=== PATIENT | female | born 1940 | race Caucasian/White ===

== ENCOUNTER 2021-05-03 07:00 | Day surgery (SDC) | payer OTHER, SELFPAY ==
[2021-05-03] MEDS: Tropicam./Phenyleph. (1/2.5%) 5 ML BTL OD ×3 (07:21→07:35)
[2021-05-03 07:31] VITALS: BP 153/70; PULSE 67; RESP 16; TEMP 36.1; O2SAT 98
--- NOTE | 2021-05-03 08:02 | W.ANESPRE ---
General Info Date of Service Date Performed: 05/03/21 Height: 4 ft 11.25 in Weight: 86.3 kg Body Mass Index (BMI): 38.0 Surgical Procedure: Operation Date: 05/03/21 08:40 Proposed Procedures Side Surgeon p Cataract Extraction with IOL Implant Right Chad Abbott MD Meds Allergies and Home Medications Allergies Allergy/AdvReac Type Severity Reaction Status Date / Time bee venom protein (honey bee) Allergy Severe Anaphylaxis Unverified 05/03/21 07:26 Home Medication Medication Instructions Recorded hydrochlorothiazide 12.5 mg PO DAILY 05/01/21 lisinopril 5 mg PO DAILY 05/01/21 metformin 500 mg PO DAILY 05/01/21 [id number] 1 tab PO DAILY 05/01/21 [Multivitamin 50 Plus] Current Visit Medications: Current Medications Generic Name Dose Route Start Last Admin Trade Name Freq PRN Reason Stop Dose Admin Acetaminophen 1,000 mg 05/03/21 06:00 Acetaminophen 500 Mg Tab PO Q4H PRN PRN Miscellaneous Medication 0 ml 05/03/21 06:00 Prednisolone 1%, Moxifloxacin 0.5%, Nepafenac 0.1% 5ml Btl OD DIRECTED TAYLOR Miscellaneous Medication 0 ml 05/03/21 06:00 05/03/21 07:35 Tropicam./Phenyleph. (1/2.5%) 5 Ml Btl OD 1 drp DIRECTED TAYLOR Administration Tetracaine HCl 0 ml 05/03/21 06:00 Tetracaine 0.5% 4 Ml Btl OD DIRECTED TAYLOR PFSH Active Problems Active Problems: Problem Status Onset Code Nuclear sclerotic cataract of right eye H25.11 Posterior subcapsular age-related cataract, right eye H25.041 Medical History Medical History Adjustment disorder with depressed mood Diabetes mellitus Hyperlipidemia Hypertensive disorder Knee pain Malaise and fatigue Migraine Severe obesity Surgical History Surgical History History of total hysterectomy Hx of appendectomy Hx of tonsillectomy Tobacco Smoking/Tobacco Use Status: Former Tobacco Use Alcohol Alcohol Intake: current Alcohol intake frequency: a few times a week Alcohol type: wine Substance Use Substance use: Never Substance use type: does not use Vital Signs and Lab Results Vital Signs Most Recent Vital Signs in EMR: Most Recent Vital Signs Temp Pulse Resp BP Pulse Ox 36.1 C L 67 16 153/70 H 98 05/03/21 07:31 05/03/21 07:31 05/03/21 07:31 05/03/21 07:31 05/03/21 07:31 Point of Care Results Point of Care Results: Finger Stick Blood Glucose 147 05/03/21 07:26 Lab Results Blood Type / Crossmatch: No Data to Display Complete Blood Count: No Data to Display Complete Metabolic Panel: No Data to Display Liver Function Panel: No Data to Display Coagulation Panel: No Data to Display Cardiac Panel: No Data to Display Arterial Blood Gas: No Data to Display Venous Blood Gas: No Data to Display Pancreas Panel: No Data to Display Thyroid Panel: No Data to Display Infectious Disease: No Data to Display Blood Cultures: No Data to Display Toxicology Panel: No Data to Display Anesthesia Assessment and Plan Anesthesia History Personal History: No History of Anesthesia Complications and Unknown Anesthesia History Family History: No Family History of Anesthesia Complications Exercise Tolerance Exercise Tolerance: Metabolic Equivalents<4 Pertinent Negatives Pertinent Negatives: No Symptoms of GERD, No Major Cardiovascular Symptoms or Complaints, No Major Pulmonary Symptoms or Complaints and No History of CVA/TIA Cardiac & Pulmonary Exam Cardiac Exam: Normal S1/S2 Heart Sounds Pulmonary Exam: Clear Bilateral Breath Sounds Airway Exam Known Difficult Airway: No Mallampati Class: 1 Mouth Opening: Normal (> 3cm) Thyromental Distance: Greater than 3 cm Neck Range of Motion: Full ROM Neck Circumference: Thick Teeth Condition: Normal Dentition ASA Classification ASA Score: ASA 2 Emergency Case?: No NPO Status NPO Status: NPO Clears >2 hours, Solids >8 hours Anesthesia Plan Resuscitation Status: Full Code Anesthesia Technique: MAC Anesthesia Airway Planned: Natural Airway Monitors Used: Standard Monitors
[2021-05-03 08:05] VITALS: BMI 38.0
[2021-05-03] MEDS: Balanced Salt Soln.-PLUS 500 ML BAG (08:20)
[2021-05-03] MEDS: Tetracaine 0.5% 4 ML BTL OD (08:20)
[2021-05-03] MEDS: Duovisc Viscoelastic System EACH 1 EACH (08:21)
[2021-05-03] MEDS: Lidocaine 2% Jelly 6 ML SYR (08:23)
[2021-05-03] MEDS: Lidocaine 1% Pres-Free 5 ML VIAL (08:23)
[2021-05-03] MEDS: Trypan Blue 0.06% 0.5 ML SYR (08:25)
[2021-05-03] MEDS: Povidone-Iodine Ophth 30 ML BTL (08:25)
--- NOTE | 2021-05-03 08:45 | W.PM.DSUDISC ---
Discharge Plan Disposition Patient Disposition: HOME Condition: Good Discharge Details Attending Provider: Chad Abbott Primary Care Provider: Rajani George Home Meds and New Rx's Prescriptions: No Action metformin 500 mg tablet 500 mg PO DAILY RF: 0 lisinopril 2.5 mg tablet 5 mg PO DAILY RF: 0 Multivitamin 50 Plus Tablet 1 tab PO DAILY RF: 0 hydrochlorothiazide 12.5 mg tablet 12.5 mg PO DAILY RF: 0 Discharge Instructions Stand Alone Forms: Post-op Topical Cataract, Isak Garcia (DSU) Discharge Orders Discharge Orders: Discharge Order (Routine); Ordered 05/03/21 Ordered By: Chad Abbott DS: Diagnosis Discharge Diagnosis (1) Nuclear sclerotic cataract of right eye: Status: Resolved (2) Posterior subcapsular age-related cataract, right eye: Status: Resolved
--- NOTE | 2021-05-03 08:46 | ROE_ITS ---
Date of service: 05/03/21 Time of Service: 08:47 Operative Note Operative Note DATE OF PROCEDURE: 05/03/21 PRE-OP DIAGNOSIS: Nuclear/posterior subcapsular cataract, right eye Poor red reflex, right eye secondary to cataract POST-OP DIAGNOSIS: same PROCEDURE: Cataract extraction using phacoemulsification with intraocular lens implantation, right eye, using capsular staining with Vision Blue SURGEON: Chad Abbott ANESTHESIA TYPE: Local By Surgeon and MAC Refer to Anesthesia Record PATHOLOGY: none sent COMPLICATIONS: None Patient was transported to: same day Patient's condition: stable Implants: [employer] / [employer] Tecnis [id number] Indications: Progressive visual loss due to cataract, right eye Procedure Description: CATARACT SURGERY OPERATIVE REPORT PREOPERATIVE DIAGNOSIS: 1. Nuclear/posterior subcapsular cataract, right eye 2. Poor red reflex secondary to #1 POSTOPERATIVE DIAGNOSIS: Same OPERATION: 1. Cataract extraction using phacoemulsification with posterior chamber intraocular lens implant, right eye. 2. Capsular staining with Vision Blue IOL: IOL Contact Lens Flashing Puncher/Model: [employer] Tore[employer] / DEIDRA Tecnis [id number] IOL Power: + 22.0 diopters IOL Serial Number: [id number] Optic Diameter: 6.0mm Haptic/Overall Diameter: 13.0mm PHACO INFO: [employer] Vision System with OZil and Active Fluidics Cumulative Dispersed Energy (CDE): 6.79 seconds SURGEON: Chad Abbott MD, BABAR ANESTHESIA: Monitored Anesthesia Care (MAC), with local sub-tenon's anesthetic infiltration COMPLICATIONS: None SPECIMENS: None INDICATIONS FOR PROCEDURE: The patient is a 80-year-old lady with history of diminished visual acuity in her right eye secondary to the development of significant nuclear and posterior subcataract. The option of cataract surgery was offered to the patient and she wished to proceed. PROCEDURE: The correct surgical eye was identified and marked as the right eye and the pupil was dilated in the preoperative area using mydriatics and cycloplegics. The dilated pupil size was 6.5 mm. She elected to proceed without oral sedation. The patient was brought to the operating room where cardiopulmonary monitoring was instituted and surgical time-out was performed, confirming the correct operative eye and IOL power. She had significant photophobia and blepharospasm, the lights had to be turned off. Topical anesthesia was administered and ophthalmic povidone-iodine 5% was instilled into the conjunctival fornices. Lidocaine gel was applied to the cornea and the lara-ocular area was prepped with Betadine 10% solution and draped in the usual sterile fashion for intraocular surgery, including an aperture drape. A Tegaderm transparent film dressing was cut in half and used to cover the lashes and lid margins. Care was taken to sequester the lashes and lid margins under the Tegaderm dressing. A lid speculum was placed between the lids of the operative eye and the Valentina-Miguel operating microscope was maneuvered into position. Juan R scissors were then used to make a conjunctival buttonhole approximately 6mm posterior to the limbus in the inferonasal quadrant. Blunt dissection was carried out to expose bare sclera, and a blunt-tipped sub-tenon?s anesthesia cannula was introduced and passed posteriorly along the globe where non- preserved plain lidocaine was injected into posterior sub-Tenon?s space. A sideport knife was used to make a paracentesis port inferotemporally. Intraocular phenylephrine/lidocaine was injected into the anterior chamber. Air was injected into the anterior chamber, followed by Vision Blue, which was painted over the anterior capsule and then irrigated out with BSS. The anterior chamber was filled with viscoelastic. A 2.4mm keratome knife was used to create a half-thickness groove at the limbus and then to construct a three-plane near-clear corneal tunnel extending 2.0mm into clear cornea superiortemporally. A flap was raised on the anterior capsule and capsulorhexis forceps were used to complete a continuous curvilinear capsulorhexis of 5.0 mm. Balanced salt solution was then used to perform cortical cleaving hydrodissection and nuclear hydrodelineation until the lens could be freely rotated within the capsular bag. The lens nucleus was then disassembled and removed within the capsular bag and iris plane using phacoemulsification. Residual cortical material was removed using the I/A handpiece. The posterior capsule was carefully polished to remove as much residual lens epithelial cells as safely possible. The capsular bag was then inflated and the anterior chamber deepened with viscoelastic. The lens implant described above was inserted into the capsular bag using the DEIDRA [place] Injector. A Kuglen hook was used to dial the IOL into position. Residual viscoelastic was then removed first from posterior to the IOL, then from the anterior chamber using the I/A handpiece. The lens implant was noted to center nicely within the capsular bag. The incisions were stromally hydrated, and the anterior chamber was reformed using BSS. Then 0.5cc of moxifloxacin 1.0mg/ml were injected into the capsular bag and anterior chamber. The incisions were checked with a Weck spear and found to be secure. Several drops of ophthalmic povidone-iodine 5% were then applied to the eye followed by two drops of Imprimis combination prednisolone/moxifloxacin/nepafenac solution. The drapes were removed and a clear plastic protective eye shield was placed over the eye. The patient was then returned to Same Day Surgery in stable condition.
--- NOTE | 2021-05-03 08:52 | W.ANESPOSTOP ---
Postoperative Evaluation Date, Time and Location Date Performed: 05/03/21 Time Performed: 08:52 Patient Location: Day Surgery Unit Vital Signs Most Recent Imported Vital Signs: Most Recent Vital Signs Temp Pulse Resp BP Pulse Ox 36.1 C L 67 16 153/70 H 98 05/03/21 07:31 05/03/21 07:31 05/03/21 07:31 05/03/21 07:31 05/03/21 07:31 Most Recent Manually Entered Vital Signs: Adult Blood Pressure: 135/88 Heart Rate: 70 Respirations: 16 Oxygen Saturation (%): 96 Temperature (C): 36.6 C Pain Score (0-10 Scale): 0 Pain Score Most Recent Pain Score: Most Recent Pain Score Pain Level 3 05/03/21 07:31 Assessment Mental Status: Awake (Alert & Oriented to Patient Baseline) Airway and Respiratory Function: Patent airway with normal (patient baseline) respiratory exam Cardiovascular Function: Hemodynamically Stable Hydration Status: Adequately Hydrated Nausea & Vomiting: No Nausea or Vomiting Pain: Pt. Denies Any Pain Peripheral Nerve Block: Patient did not receive a nerve block
[2021-05-03 08:53] VITALS: BP 135/88; PULSE 70; RESP 16; TEMPC 36.6; O2SAT 96
[2021-05-03 08:54] VITALS: BP 135/88; PULSE 70; RESP 16; TEMP 36.6; O2SAT 96
== END 2021-05-03 09:05 | disposition home or self-care (01) ==
PROVIDERS: PCP Registered Nurse; Visit Provider Ophthalmology
PROC: (CPT 66984; principal; 2021-05-03 08:30)
DX: H25.041 Posterior subcapsular polar age-related cataract, right eye (principal); E11.9 Type 2 diabetes mellitus without complications; I10 Essential (primary) hypertension; E78.5 Hyperlipidemia, unspecified
CPT/HCPCS: 66984; V2632

== ENCOUNTER 2022-10-08 22:46 | Emergency (ER) | payer OTHER, SELFPAY ==
[2022-10-08] VITALS (9 sets, daily range): BP systolic 180–203; BP diastolic 70–104; PULSE 55–75; RESP 13–22; TEMP 37.2; O2SAT 99
--- NOTE | 2022-10-08 22:57 | ED.GENADUL_ITS ---
Discharge Plan Disposition Patient Disposition: Home Condition: Stable Discharge Details Clinical Impression: Sciatica Primary Care Provider: Rajani George ED Provider: Cira Escalona Home Meds and New Rx's Prescriptions: New prednisone 20 mg tablet See Rx Instructions .ROUTE .COMPLEX Qty: 18 0RF Rx Instructions: Take 3 tabs daily for 3 days, then 2 tabs daily for 3 days, then 1 tab daily for 3 days. diazepam 5 mg tablet 5 mg PO TID PRN (Reason: muscle spasm) Qty: 10 0RF Continued metformin 500 mg tablet 500 mg PO DAILY lisinopril 2.5 mg tablet 5 mg PO DAILY Multivitamin 50 Plus Tablet 1 tab PO DAILY hydrochlorothiazide 12.5 mg tablet 12.5 mg PO DAILY Discontinued tramadol 50 mg tablet 50 mg PO .Q6HRS Label Comments: TAKE 1 TABLET BY MOUTH EVERY 6 HOURS FOR 5 DAYS pregabalin 25 mg capsule 25 mg PO TID Discharge Instructions Instructions: Sciatica (ED) Additional Instructions: It is suspected that your pain is due to sciatica which is an inflammation of a large nerve in your lower back, buttock and legs. Your pain could also be due to a muscle spasm or arthritis. Drink plenty of fluids and get plenty of rest. Alternate tylenol and motrin as needed and directed for pain. Prescriptions for muscle relaxers and steroids have been sent electronically to your pharmacy to take as directed. You were also given a 4 tab bottle of oxycodone to take for breakthrough pain. Stop taking your pregabalin and tramadol that you have at home as this has not been helping your pain and you do not want to take these medications while taking your new prescriptions. Take caution when taking the muscle relaxer Valium and the pain medication Oxycodone together as this can cause increased drowsiness which can increase risk of fall in addition to increased risk of slowing down your breathing which can lead to . Start taking wldm-lpw-qyiusjj Colace once daily which is a stool softener and can help prevent constipation. You can also take daily ugdc-gyu-oyzqgev MiraLAX as directed. If you remain constipated you can also use xvit-son-uyzsvdf suppositories or enemas or magnesium citrate as directed. Follow-up with your primary care doctor in 1 week. Return to the emergency department with any worsening or new concerning symptoms. Discharge Data Discharge Date/Time-TO BE ENTERED AT DEPARTURE: 10/09/22 06:46 Discharge Physician: Cira Escalona Medical Decision Making [id number] -- 82-year-old female with a history of hypertension, hyperlipidemia, obesity, migraines, diabetes and depression presents for right leg pain for the past 2.5 weeks. No relief with pregabalin and ?? steroid course per her pcp for this recently. No cauda equina symptoms. Patient appears quite uncomfortable, moaning and writhing around stretcher. Her blood pressure is moderately hypertensive but remainder of vitals within normal limits. Her leg appears normal to inspection but she does have tenderness overlying the right buttock. There is no rash, cellulitis or trauma. There are no obvious concerning focal deficits. History of presentation does not appear consistent with cauda equina syndrome, disc herniation or lumbar compression fracture. Suspect sciatica or arthritis. IV placed per EMS. We will give a dose of Toradol 30 mg IV in addition to p.o. prednisone, Valium and oxycodone and reassess. 0035 --patient reassessed and she feels better and appears much more comfortable. She was able to ambulate to the bathroom with use of a walker. Patient states she does not think her son can pick her up at this time of night because he needs to be at home to care for her . Patient would like to stay here till the morning until her son can pick her up. We will discharged to home with prescriptions for steroids and muscle relaxers in addition to oxycodone for breakthrough pain. Advised on the importance of limiting muscle relaxers and oxycodone together due to increased risk of respiratory depression and . She is advised to stop taking her pregabalin and tramadol as this has been not been helping her pain. Advised to increase fluids and rest. Advised to follow up with the primary care doctor for re-evaluation. Usual and customary return precautions given prior to discharge. Patient was able to rest overnight without requiring additional pain medications. She was able to ambulate and felt better upon discharge. Medical Records Medical records reviewed: Yes I reviewed the patient's medical records. HPI General Mode of arrival: ambulatory . Date/Time Provider Initiated Documentation: 10/08/22 22:57 . Limitations to Documentation: no limitations . Information obtained by: patient . HPI Narrative: Patient is a 82-year-old female with history of hypertension, hyperlipidemia, obesity, diabetes, depression who presents to the ED with a complaint of right leg pain. She states she recently saw her PCP as an outpatient for this and had an outpatient x-ray of her leg which was unremarkable and was placed on pregabalin without relief. Review of patient's medications notes that she was started on tramadol for pain recently as well. She states she thinks she was also placed on a few days of steroids without relief. She states she feels she has been constipated from the medication. She states her last bowel movement was this morning but smaller than usual. She describes the pain as in her right upper buttock radiating down the back of her leg through her knee and to her toe. Patient describes the pain as a constant ache. She states it is worse mainly with weightbearing. She states she cares for her at home who has dementia. She states she has been using his walker today to help with ambulation due to right leg pain and difficulty ambulating. She denies any bowel or bladder incontinence, saddle anesthesia, fever, vomiting, urinary symptoms or abdominal pain. Related Data Home Medications Medication Instructions Recorded Confirmed hydrochlorothiazide 12.5 mg tablet 12.5 mg PO DAILY 05/01/21 10/08/22 lisinopril 2.5 mg tablet 5 mg PO DAILY 05/01/21 10/08/22 metformin 500 mg tablet 500 mg PO DAILY 05/01/21 10/08/22 [id number]-[id number]-fgavvx 1 tab PO DAILY 05/01/21 10/08/22 tablet (Multivitamin 50 Plus tablet) diazepam 5 mg tablet 5 mg PO TID PRN muscle spasm #10 10/09/22 tabs prednisone 20 mg tablet See Rx Instructions .Route 10/09/22 .COMPLEX #18 tabs Previous Rx's Medication Instructions Recorded diazepam 5 mg tablet 5 mg PO TID PRN muscle spasm #10 10/09/22 tabs prednisone 20 mg tablet See Rx Instructions .Route 10/09/22 .COMPLEX #18 tabs Allergies Allergy/AdvReac Type Severity Reaction Status Date / Time bee venom protein (honey bee) Allergy Severe Anaphylaxis Unverified 05/03/21 07:26 General Stated Complaint: Orthopedic Review of Systems All systems reviewed & are unremarkable except as noted in HPI and below Constitutional Constitutional: Reports as per HPI, Denies chills and Denies fever(s) Eyes Eyes: Denies blurry vision ENT Ears, Nose, Mouth, and Throat: Denies dizziness, Denies sore throat and Denies throat swelling Cardiovascular Cardiovascular: Denies chest pain and Denies dyspnea Respiratory Respiratory: Denies cough and Denies dyspnea Gastrointestinal Gastrointestinal: Denies abdominal pain, Denies diarrhea and Denies vomiting Genitourinary Genitourinary: Denies hematuria and Denies dysuria Musculoskeletal Musculoskeletal: Denies back pain and Denies numbness Comments: Right leg pain Integumentary/Breasts Skin/Breast: Denies lesions and Denies rash Neurologic Neurologic: Denies dizziness, Denies localized weakness and Denies numbness Allergic/Immunologic Allergic/Immunologic: Denies throat swelling PFSH All Active Problems (Updated 10/09/22 @ 00:38 by Cira Escalona DO) Sciatica (Acute) Medical History (Updated 10/09/22 @ 00:38 by Cira Escalona DO) Adjustment disorder with depressed mood Diabetes mellitus Hyperlipidemia Hypertensive disorder Knee pain Malaise and fatigue Migraine Severe obesity Surgical History (Updated 05/03/21 @ 08:45 by Chad Abbott MD) History of total hysterectomy Hx of appendectomy Hx of tonsillectomy Social History Smoking/Tobacco Use Status: Former Tobacco Use Quit Date: 10/12/89 Smoking risk assessment performed?: Yes Alcohol Intake: current Alcohol Intake frequency: a few times a week Alcohol type: wine Drug use: Never Substance use type: does not use Do you feel safe at home: Yes Do you feel safe in your relationship?: Yes Exam Const General: cooperative, healthy appearing and no acute distress HENMT Head: normal to inspection Face and sinus: normal facial exam Eyes General: appearance normal, both eyes and all related structures Pupils: PERRL EOM: EOM intact bilaterally Neck Neck: normal visual inspection and No submandibular swelling Lymphatic: no lymphadenopathy noted Chest Chest: normal inspection of the chest and no tenderness Resp Effort & Inspection: normal respiratory effort and able to speak in complete sentences Auscultation: clear to auscultation bilaterally Cardio Rate: regular rate Rhythm: regular rhythm GI Inspection: normal to inspection Palpation: soft, not firm, not rigid and nontender Auscultation: normal bowel sounds Back/Spine/Pelvis Thoracic/Lumbar Spine: thoracic and lumbar spine normal to inspection and No lumbar spinal tenderness Back/spine/pelvis image: 1. Tenderness of right upper and mid buttock. Skin appears normal to inspection without erythema, edema, ecchymosis, rash or lesions. Skin General skin exam: no rashes or lesions noted Neuro General: patient alert, patient awake and patient oriented x3 Cognition: normal cognition Speech: speech normal Motor: muscle tone normal throughout and strength 5/5 throughout Sensory Exam: no sensory deficits noted DTR's: Rt Patellar: 1+, Lt Patellar: 2+, Rt Ankle: 1+ and Lt Ankle: 1+ Plantar Reflexes: Equivocal: bilateral (Negative babinski b/l ) Extrem General: normal to inspection, full ROM, capillary refill normal, no calf tenderness bilaterally and no edema Other: B/L DP/PT pulses intact. Psych Appearance: grossly normal Mental Status: mental status grossly normal Speech and Movement: speech and movement normal Affect: normal affect
[2022-10-08] MEDS: Ketorolac 30 MG/ML VIAL IVP (23:26)
[2022-10-08] MEDS: diazePAM 5 MG TAB PO (23:28)
[2022-10-08] MEDS: predniSONE 20 MG TAB 60 MG PO (23:29)
[2022-10-08] MEDS: oxyCODONE 5 MG TAB PO (23:29)
[2022-10-09] VITALS (16 sets, daily range): BP systolic 173–207; BP diastolic 62–175; PULSE 57–69; RESP 11–25; TEMP 37.2; O2SAT 99
== END 2022-10-09 06:46 | disposition home or self-care (01) ==
PROVIDERS: Emergency Provider Physician Assistant; PCP Registered Nurse
DX: M54.31 Sciatica, right side (principal)
CPT/HCPCS: 96374; 99284; 99283; J1885; J7512